=== PATIENT | male | born 1985 | race Caucasian/White ===

== ENCOUNTER 2017-01-23 19:35 | Emergency (ER) | payer BC ==
[2017-01-23 20:12] LABS: Bilirubin Negative (Negative); Blood, Urine Negative (Negative); Glucose, Urine (Dipstick) Negative (Negative); Ketone, Urine Negative (Negative); Nitrite Negative (Negative); Protein, Urine (Dipstick) Negative (Neg-Trace); Urobilinogen 0.2 mg/dL (0.2-1.0)
--- NOTE | 2017-01-23 21:34 | ULT ---
SCROTAL ULTRASOUND INCLUDING COLOR AND SPECTRAL DOPPLER IMAGIN01/23/17 HISTORY: 31-year-old male with right testicular pain and swelling today as well as some right flank pain. Right testis measures 3.6 x 2.0 x 2.9 cm. Left testis measures 4.0 x 2.0 x 2.8 cm. Epididymal region s are unremarkable in size. VASCULAR DUPLEX WITH COLOR AND SPECTRAL DOPPLER IMAGING: Arterial inflow and venous outflow documented to both testes. No evidence for testicular torsion. Th ere is some slight increased vascularity in the tail of the right epididymis which is otherwise norm al in size and echotexture. No hydrocele. No intra or extratesticular mass. IMPRESSION: No evidence of testicular torsion. No intratesticular mass. Slight increased flow in the region of t he right epididymal tail without evidence for enlargement or altered echotexture possibly some mild acute epididymitis. No hydrocele or other acute process. POS: [facility]
[2017-01-23] MEDS ORDERED: Ketorolac Tromethamine 60 MG/2 ML VIAL ONE (21:45)
[2017-01-23] MEDS ORDERED: Lidocaine 1% (PF) 30 ML VIAL ONE (21:45)
[2017-01-23] MEDS ORDERED: cefTRIAXone\\ROCEPHIN 2 GM VIAL ONE (21:45)
[2017-01-23] MEDS ORDERED: Lidocaine 1% PF 5 ML VIAL ONE (21:48)
== END 2017-01-23 22:16 | disposition home or self-care (01) ==
LOC: ERS 19:35
DX: N45.1 Epididymitis (principal); G47.30 Sleep apnea, unspecified; F32.9 Major depressive disorder, single episode, unspecified; Z79.84 Long term (current) use of oral hypoglycemic drugs; Z79.899 Other long term (current) drug therapy
CPT/HCPCS: 76870; 81003; 93976; 96372; J0696; J1885; J2001

== ENCOUNTER 2024-10-19 09:11 | Outpatient (CLI) | payer BC | END 2024-10-19 09:12 | disposition home or self-care (01) | LOC: SCSRAD 09:11 | PROVIDERS: ATTEND Family Medicine | DX: M54.2 Cervicalgia (principal) | CPT/HCPCS: 72040 ==